=== PATIENT | male | born 1965 | race Caucasian/White ===

== ENCOUNTER 2018-10-31 02:37 | Inpatient (IN) | payer OTHER ==
[~2018-10-31] VITALS: Ht 198.1 cm; Wt 92.8 kg
[~2018-10-31 02:37] MED LIST: ASPI81TA45 PO; CARV40CP PO; DIGO125T PO; FURO-93 PO
--- NOTE | 2018-10-31 02:58 | NUR ---
PT TO CT
--- NOTE | 2018-10-31 03:05 | NUR ---
PT WAS BROUGHT HERE BY [employer]ADEEP FROM WORK FOR SEIZURE LIKE ACTIVITY AT WORK. PT HAS HX OF CHF AND HAS A DEFIBRILATOR IN PLACE. PT HAS BILATERAL PEDAL EDEMA. PT COMPLAINING OF OVER ALL WEAKNESS. PT IS AAOX 3 CONFUSED TO TIME. LAB AT BEDSIDE.
[2018-10-31 03:13] LABS: BASOPHILS # (AUTO) 0.01 x10^3/uL (0-0.1); BASOPHILS % (AUTO) 1 % (0-1); EOSINOPHILS # (AUTO) 0.07 x10^3/uL (0-0.4); EOSINOPHILS % (AUTO) 2 % (1-7); LYMPHOCYTES # (AUTO) 0.53 x10^3/uL (1-3.4); LYMPHOCYTES % (AUTO) 17 % (22-44); MD NO; MEAN CORPUSCULAR HEMOGLOBIN 32.8 pg (27.5-34.5); MEAN CORPUSCULAR HGB CONC 34.4 g/dL (33.2-36.2); MEAN CORPUSCULAR VOLUME 95.4 fL (81-97); MEAN PLATELET VOLUME 9.8 fL (7.4-10.4); MONOCYTES # (AUTO) 0.36 x10^3/uL (0.2-0.8); MONOCYTES % (AUTO) 12 % (2-9); NEUTROPHILS # (AUTO) 2.17 x10^3/uL (1.8-6.8); NEUTROPHILS % (AUTO) 69 % (42-75); PLATELET COUNT 141 x10^3/uL (130-400); RED BLOOD COUNT 4.04 x10^6/uL (4.38-5.82); RED CELL DISTRIBUTION WIDTH 14.8 % (9.4-14.8)
[2018-10-31 03:24] LABS: INTERNATIONAL NORMALIZED RATIO 1.03 (0.93-1.1); PROTHROMBIN TIME 10.8 Seconds (9.6-11.5)
[2018-10-31 03:25] LABS: ALANINE AMINOTRANSFERASE 29 U/L (12-78); ALBUMIN 3.9 g/dL (3.4-5.0); ANION GAP 4 mmol/L (5-15); CALCIUM 8.9 mg/dL (8.5-10.1); CHLORIDE 108 mmol/L (98-107)
[2018-10-31 03:28] LABS: ALKALINE PHOSPHATASE 85 U/L (45-117); BILIRUBIN,TOTAL 0.2 mg/dL (0.2-1.0); CREATININE 1.25 mg/dL (0.7-1.3); TOTAL PROTEIN 6.9 g/dL (6.4-8.2); TROPONIN I < 0.015 ng/mL (0.000-0.045)
[2018-10-31 03:31] LABS: SALICYLATE LEVEL < 1.7 mg/dL (2.8-20.0)
[2018-10-31 03:33] LABS: ACETAMINOPHEN < 2 mcg/mL (10-30)
--- NOTE | 2018-10-31 04:16 | NUR ---
PT TOLERATING PO FLUIDS AND AMBULATED WITH A STEADY GAIT. NOTIFIED
[2018-10-31] MEDS ORDERED: LORazepam 2 MG/ML, 1ML IVPush PRN (05:00)
[2018-10-31] MEDS ORDERED: POLYETHYLENE GLYCOL 17 GM PACKET PO PRN (05:00)
[2018-10-31] MEDS ORDERED: hydrALAzine 20 MG/ML, 1ML IVPush PRN (05:00)
[2018-10-31 05:32] VITALS: BP 118/72
[2018-10-31] MEDS: ENOXAPARIN 40 MG/0.4 ML SQ SCH (06:22)
[2018-10-31] MEDS: FUROSEMIDE 20 MG TABLET PO SCH (08:40)
[2018-10-31] MEDS ORDERED: CARVEDILOL 12.5 MG TABLET PO SCH (09:00)
[2018-10-31] MEDS ORDERED: DIGOXIN 0.125 MG TABLET PO SCH (09:00)
[2018-10-31 09:43] LABS: AMPHETAMINE SCREEN, URINE Negative (Negative); BARBITURATE SCREEN, URINE Negative (Negative); BENZODIAZEPINE SCREEN, URINE Negative (Negative); CANNABINOID SCREEN, URINE Negative (Negative); COCAINE SCREEN, URINE Negative (Negative); METHADONE SCREEN, URINE Negative (Negative); OPIATE SCREEN, URINE Negative (Negative)
[2018-10-31 11:23] VITALS: BP 119/72
[2018-10-31] MEDS ORDERED: FLEC50TA25 PO (12:10)
[2018-10-31] MEDS ORDERED: CARV25TA12 PO (12:10)
[2018-10-31] MEDS ORDERED: HYDR25TA6 PO (12:10)
[2018-10-31] MEDS: LEVETIRACETAM 1,000 MG in SODIUM CHLORIDE 0.9% 100 ML IV SCH (14:06)
[2018-10-31 14:41] VITALS: BP 120/74
[2018-10-31] MEDS ORDERED: ACETAMINOPHEN 325 MG TABLET PO PRN (17:00)
[2018-10-31 18:35] LABS: O2 FLOW ROOM AIR L/min
[2018-10-31 20:04] VITALS: BP 111/69
[2018-10-31] MEDS: CARVEDILOL 12.5 MG TABLET PO SCH (20:08)
[2018-10-31] MEDS: FLECAINIDE 50MG TABLET PO SCH (20:08)
[2018-10-31 20:31] VITALS: BP 100/63
[2018-11-01 00:01] VITALS: BP_SYST 111; BP_SYST 114; BP_DIAS 69
[2018-11-01] MEDS: LEVETIRACETAM 1,000 MG in SODIUM CHLORIDE 0.9% 100 ML IV SCH (02:37)
[2018-11-01] MEDS: ENOXAPARIN 40 MG/0.4 ML SQ SCH (04:48)
[2018-11-01 06:29] LABS: BASOPHILS # (AUTO) 0.02 x10^3/uL (0-0.1); BASOPHILS % (AUTO) 0 % (0-1); EOSINOPHILS # (AUTO) 0.05 x10^3/uL (0-0.4); EOSINOPHILS % (AUTO) 1 % (1-7); LYMPHOCYTES # (AUTO) 0.59 x10^3/uL (1-3.4); LYMPHOCYTES % (AUTO) 15 % (22-44); MD NO; MEAN CORPUSCULAR HEMOGLOBIN 32.8 pg (27.5-34.5); MEAN CORPUSCULAR HGB CONC 34.3 g/dL (33.2-36.2); MEAN CORPUSCULAR VOLUME 95.7 fL (81-97); MEAN PLATELET VOLUME 10.4 fL (7.4-10.4); MONOCYTES # (AUTO) 0.38 x10^3/uL (0.2-0.8); MONOCYTES % (AUTO) 9 % (2-9); NEUTROPHILS # (AUTO) 3.02 x10^3/uL (1.8-6.8); NEUTROPHILS % (AUTO) 75 % (42-75); PLATELET COUNT 127 x10^3/uL (130-400); RED BLOOD COUNT 3.96 x10^6/uL (4.38-5.82); RED CELL DISTRIBUTION WIDTH 14.6 % (9.4-14.8)
[2018-11-01 06:37] LABS: ALBUMIN 3.3 g/dL (3.4-5.0); ANION GAP 4 mmol/L (5-15); CALCIUM 8.5 mg/dL (8.5-10.1); CHLORIDE 111 mmol/L (98-107)
[2018-11-01 06:42] LABS: ALANINE AMINOTRANSFERASE 31 U/L (12-78); ALKALINE PHOSPHATASE 71 U/L (45-117); BILIRUBIN,TOTAL 0.7 mg/dL (0.2-1.0); TOTAL PROTEIN 6.2 g/dL (6.4-8.2)
[2018-11-01 07:45] VITALS: BP 105/67
[2018-11-01] MEDS: CARVEDILOL 12.5 MG TABLET PO SCH ×2 (07:46→21:19)
[2018-11-01] MEDS: FLECAINIDE 50MG TABLET PO SCH ×2 (07:47→21:18)
[2018-11-01] MEDS: FUROSEMIDE 20 MG TABLET PO SCH (07:47)
[2018-11-01] MEDS: LEVETIRACETAM 500 MG TABLET PO SCH ×2 (12:12→21:18)
[2018-11-01 14:02] VITALS: BP 105/62
[2018-11-01 20:08] VITALS: BP 109/65
[2018-11-01 21:17] VITALS: BP 105/70
[2018-11-02 01:22] VITALS: BP 98/63
[2018-11-02] MEDS: ENOXAPARIN 40 MG/0.4 ML SQ SCH (05:01)
[2018-11-02 06:13] LABS: ANION GAP 4 mmol/L (5-15); CALCIUM 8.5 mg/dL (8.5-10.1); CHLORIDE 109 mmol/L (98-107); CREATININE 0.89 mg/dL (0.7-1.3)
[2018-11-02 06:42] VITALS: BP 133/84
[2018-11-02] MEDS: CARVEDILOL 12.5 MG TABLET PO SCH (08:54)
[2018-11-02] MEDS: LEVETIRACETAM 500 MG TABLET PO SCH (08:54)
[2018-11-02] MEDS: FLECAINIDE 50MG TABLET PO SCH (08:54)
[2018-11-02] MEDS ORDERED: HYDROCHLOROTHIAZIDE 25 MG TABLET PO SCH (09:00)
[2018-11-02] MEDS ORDERED: OMNIPAQUE 350 MG/ML, 75ML BOTTLE ONE (10:45)
[2018-11-02] MEDS ORDERED: LEVE10007 PO (11:19)
[2018-11-02 12:26] VITALS: BP 116/69
== END 2018-11-02 15:15 | disposition home health service (06) | DRG 101 ==
LOC: ED 03:32 → EDIP 04:29 → 4EST 05:19 → DCLOUNGE 11-02 15:08
PROVIDERS: ADMIT Family Medicine; ATTEND Family Medicine
PROC: 5A12012 Performance of Cardiac Output, Single, Manual (ICD-10-PCS; principal; 2018-10-31)
DX: R56.9 Unspecified convulsions (principal); Z95.810 Presence of automatic (implantable) cardiac defibrillator; I48.91 Unspecified atrial fibrillation; F10.10 Alcohol abuse, uncomplicated; I11.0 Hypertensive heart disease with heart failure; I50.9 Heart failure, unspecified; R32 Unspecified urinary incontinence; Z79.01 Long term (current) use of anticoagulants; Z86.73 Personal history of transient ischemic attack (TIA), and cerebral infarction without residual deficits; Z80.3 Family history of malignant neoplasm of breast; Z82.49 Family history of ischemic heart disease and other diseases of the circulatory system; Z82.3 Family history of stroke
CPT/HCPCS: 36415; 36600; 70450; 70460; 71045; 80048; 80053; 80162; 80307; 82803; 82962; 83735; 83880; 84484; 85025; 85610; 85730; 92950; 93005; 93970; 95819; G0378; J1650; J1953; Q9967

== ENCOUNTER 2019-11-01 21:11 | Inpatient (IN) | payer OTHER ==
[~2019-11-01] VITALS: Ht 198.1 cm; Wt 102.4 kg
[~2019-11-01 21:11] MED LIST changes: +CARV25TA12 PO; -DIGO125T PO; +DIGO125T85 PO; +FLEC50TA25 PO; +HYDR25TA6 PO; +LEVE10007 PO; +lopressor; +paxil
[2019-11-01 22:36] VITALS: BP 105/63
[2019-11-01] MEDS ORDERED: hydrALAzine 20 MG/ML, 1ML IVPush PRN (23:00)
[2019-11-01] MEDS ORDERED: ONDANSETRON 2MG/ML, 2ML IVPush PRN (23:00)
[2019-11-01 23:24] LABS: BASOPHILS # (AUTO) 0.01 x10^3/uL (0-0.1); BASOPHILS % (AUTO) 0 % (0-1); EOSINOPHILS # (AUTO) 0.04 x10^3/uL (0-0.4); EOSINOPHILS % (AUTO) 1 % (1-7); LYMPHOCYTES # (AUTO) 0.49 x10^3/uL (1-3.4); LYMPHOCYTES % (AUTO) 12 % (22-44); MD NO; MEAN CORPUSCULAR HEMOGLOBIN 32.1 pg (27.5-34.5); MEAN CORPUSCULAR HGB CONC 34.1 g/dL (33.2-36.2); MEAN CORPUSCULAR VOLUME 94.3 fL (81-97); MEAN PLATELET VOLUME 10.2 fL (7.4-10.4); MONOCYTES # (AUTO) 0.49 x10^3/uL (0.2-0.8); MONOCYTES % (AUTO) 12 % (2-9); NEUTROPHILS # (AUTO) 3.18 x10^3/uL (1.8-6.8); NEUTROPHILS % (AUTO) 75 % (42-75); PLATELET COUNT 113 x10^3/uL (130-400); RED BLOOD COUNT 3.87 x10^6/uL (4.38-5.82); RED CELL DISTRIBUTION WIDTH 14.6 % (9.4-14.8)
[2019-11-01 23:35] LABS: INTERNATIONAL NORMALIZED RATIO 1.07 (0.93-1.1); PROTHROMBIN TIME 11.3 Seconds (9.6-11.5)
[2019-11-01 23:39] LABS: ALANINE AMINOTRANSFERASE 27 U/L (12-78); ALBUMIN 3.1 g/dL (3.4-5.0); ANION GAP 10 mmol/L (5-15); CALCIUM 8.8 mg/dL (8.5-10.1); CHLORIDE 102 mmol/L (98-107); CREATININE 0.97 mg/dL (0.7-1.3)
[2019-11-02 00:05] LABS: ALKALINE PHOSPHATASE 81 U/L (45-117); BILIRUBIN,TOTAL 0.6 mg/dL (0.2-1.0); TOTAL PROTEIN 6.5 g/dL (6.4-8.2)
[2019-11-02] MEDS ORDERED: OMNIPAQUE 350 MG/ML, 100ML BOTTLE ONE (01:14)
[2019-11-02] MEDS ORDERED: CALCIUM GLUCONATE 4.6 MEQ in SODIUM CHLORIDE 0.9% 50 ML IV ONE (01:30)
[2019-11-02] MEDS ORDERED: POTASSIUM CHLORIDE 40 MEQ in SODIUM CHLORIDE 0.9% 500 ML IV ONE (01:30)
[2019-11-02 01:48] VITALS: BP 101/61
[2019-11-02] MEDS: CEFTRIAXONE PMX 1GM/50ML 50 ML IV SCH (03:54)
[2019-11-02 05:08] LABS: CHOL/HDL RATIO 3.4; LDL/HDL RATIO 1.9 (0.5-3.0)
[2019-11-02] MEDS: CARVEDILOL 6.25 MG TABLET PO SCH ×2 (05:42→18:29)
[2019-11-02 05:43] VITALS: BP 120/67
[2019-11-02] MEDS ORDERED: SODI30SP NS (08:54)
[2019-11-02] MEDS ORDERED: METO25TA35 PO (08:54)
[2019-11-02] MEDS ORDERED: PARO20TA98 PO (08:54)
[2019-11-02] MEDS ORDERED: ACET-76 PO (08:54)
[2019-11-02 09:28] VITALS: BP 100/64
[2019-11-02] MEDS: LEVETIRACETAM 500 MG TABLET PO SCH ×2 (09:29→22:16)
[2019-11-02] MEDS ORDERED: POTASSIUM CHLORIDE 10% 40 MEQ/30 ML UDC PO ONE (09:30)
[2019-11-02] MEDS: PANTOPRAZOLE 40 MG IV IVPush SCH ×2 (09:57→22:16)
[2019-11-02] MEDS: DOXYCYCLINE 100 MG in DEXTROSE 5% 250 ML IV SCH ×2 (09:57→22:16)
[2019-11-02 12:27] LABS: MICROSCOPIC AUTO
[2019-11-02 14:48] VITALS: BP 97/53
[2019-11-02] MEDS ORDERED: LIDOCAINE 1%, 10ML ONE (14:54)
[2019-11-02] MEDS ORDERED: OMNIPAQUE 180 MG/ML, 20ML VIAL ONE (16:09)
[2019-11-02 18:27] VITALS: BP 107/58
[2019-11-02] MEDS: ACETAMINOPHEN 325 MG TABLET PO PRN (22:16)
[2019-11-03] MEDS: CEFTRIAXONE PMX 1GM/50ML 50 ML IV SCH (03:51)
[2019-11-03 03:55] VITALS: BP 108/65
[2019-11-03 05:08] LABS: ALBUMIN 2.7 g/dL (3.4-5.0); ANION GAP 3 mmol/L (5-15); CALCIUM 8.6 mg/dL (8.5-10.1); CHLORIDE 105 mmol/L (98-107)
[2019-11-03 05:13] LABS: ALANINE AMINOTRANSFERASE 24 U/L (12-78); ALKALINE PHOSPHATASE 70 U/L (45-117); BILIRUBIN,TOTAL 0.4 mg/dL (0.2-1.0); CREATININE 0.98 mg/dL (0.7-1.3); TOTAL PROTEIN 5.8 g/dL (6.4-8.2)
[2019-11-03] MEDS: CARVEDILOL 6.25 MG TABLET PO SCH ×2 (05:30→17:54)
[2019-11-03 05:34] LABS: MEAN CORPUSCULAR HEMOGLOBIN 32.1 pg (27.5-34.5); MEAN CORPUSCULAR HGB CONC 33.3 g/dL (33.2-36.2); MEAN CORPUSCULAR VOLUME 96.3 fL (81-97); MEAN PLATELET VOLUME 10.6 fL (7.4-10.4); PLATELET COUNT 95 x10^3/uL (130-400); RED BLOOD COUNT 3.61 x10^6/uL (4.38-5.82); RED CELL DISTRIBUTION WIDTH 15.1 % (9.4-14.8)
[2019-11-03 06:25] LABS: BASOPHILS # (AUTO) 0.01 x10^3/uL (0-0.1); BASOPHILS % (AUTO) 0 % (0-1); EOSINOPHILS # (AUTO) 0.05 x10^3/uL (0-0.4); EOSINOPHILS % (AUTO) 1 % (1-7); LYMPHOCYTES # (AUTO) 0.48 x10^3/uL (1-3.4); LYMPHOCYTES % (AUTO) 12 % (22-44); MD SCAN; MONOCYTES # (AUTO) 0.39 x10^3/uL (0.2-0.8); MONOCYTES % (AUTO) 9 % (2-9); NEUTROPHILS # (AUTO) 3.18 x10^3/uL (1.8-6.8); NEUTROPHILS % (AUTO) 77 % (42-75)
[2019-11-03 07:38] VITALS: BP 103/62
[2019-11-03] MEDS: ACETAMINOPHEN 325 MG TABLET PO PRN ×2 (09:54→21:05)
[2019-11-03] MEDS: LEVETIRACETAM 500 MG TABLET PO SCH ×2 (09:54→21:05)
[2019-11-03] MEDS: PANTOPRAZOLE 40 MG IV IVPush SCH (09:54)
[2019-11-03] MEDS: DOXYCYCLINE 100 MG in DEXTROSE 5% 250 ML IV SCH ×2 (10:33→22:00)
[2019-11-03] MEDS ORDERED: PROPOFOL 50 ML ONE (12:25)
[2019-11-03 13:18] VITALS: BP 111/66
[2019-11-03 19:54] VITALS: BP 108/62
[2019-11-04 00:13] VITALS: BP 117/68
[2019-11-04] MEDS: ACETAMINOPHEN 325 MG TABLET PO PRN (03:04)
[2019-11-04] MEDS: CEFTRIAXONE PMX 1GM/50ML 50 ML IV SCH (03:04)
[2019-11-04 06:12] VITALS: BP 120/71
[2019-11-04] MEDS: CARVEDILOL 6.25 MG TABLET PO SCH ×2 (06:14→17:44)
[2019-11-04] MEDS: OMEPRAZOLE 20 MG CAPSULE.DR PO SCH (06:14)
[2019-11-04 07:01] VITALS: BP 108/64
[2019-11-04] MEDS: LEVETIRACETAM 500 MG TABLET PO SCH ×2 (08:53→21:42)
[2019-11-04] MEDS: HYDROcodone/APAP 5/325 TABLET PO PRN ×3 (08:54→21:42)
[2019-11-04] MEDS: DOXYCYCLINE 100 MG in DEXTROSE 5% 250 ML IV SCH ×2 (10:04→22:04)
[2019-11-04 12:12] VITALS: BP 108/65
[2019-11-04 21:40] VITALS: BP 95/60
[2019-11-04] MEDS: TIZANIDINE 4MG TABLET PO PRN (21:42)
[2019-11-05] MEDS: HYDROcodone/APAP 5/325 TABLET PO PRN ×4 (01:42→21:52)
[2019-11-05 01:49] VITALS: BP 96/63
[2019-11-05] MEDS: CEFTRIAXONE PMX 1GM/50ML 50 ML IV SCH (03:41)
[2019-11-05] MEDS: CARVEDILOL 6.25 MG TABLET PO SCH ×2 (05:54→18:18)
[2019-11-05] MEDS: OMEPRAZOLE 20 MG CAPSULE.DR PO SCH (05:55)
[2019-11-05] MEDS: TIZANIDINE 4MG TABLET PO PRN ×2 (05:55→21:52)
[2019-11-05 07:00] LABS: BASOPHILS # (AUTO) 0.01 x10^3/uL (0-0.1); BASOPHILS % (AUTO) 0 % (0-1); EOSINOPHILS # (AUTO) 0.11 x10^3/uL (0-0.4); EOSINOPHILS % (AUTO) 3 % (1-7); LYMPHOCYTES # (AUTO) 0.54 x10^3/uL (1-3.4); LYMPHOCYTES % (AUTO) 15 % (22-44); MD NO; MEAN CORPUSCULAR HEMOGLOBIN 32.4 pg (27.5-34.5); MEAN CORPUSCULAR HGB CONC 33.6 g/dL (33.2-36.2); MEAN CORPUSCULAR VOLUME 96.5 fL (81-97); MEAN PLATELET VOLUME 10.3 fL (7.4-10.4); MONOCYTES # (AUTO) 0.36 x10^3/uL (0.2-0.8); MONOCYTES % (AUTO) 10 % (2-9); NEUTROPHILS # (AUTO) 2.61 x10^3/uL (1.8-6.8); NEUTROPHILS % (AUTO) 72 % (42-75); PLATELET COUNT 102 x10^3/uL (130-400); RED BLOOD COUNT 3.78 x10^6/uL (4.38-5.82); RED CELL DISTRIBUTION WIDTH 14.2 % (9.4-14.8)
[2019-11-05 07:08] LABS: ANION GAP 1 mmol/L (5-15); CALCIUM 8.6 mg/dL (8.5-10.1); CHLORIDE 107 mmol/L (98-107)
[2019-11-05 07:09] LABS: CREATININE 0.68 mg/dL (0.7-1.3)
[2019-11-05 07:46] VITALS: BP 92/58
[2019-11-05] MEDS ORDERED: DOCUSATE 100 MG CAPSULE ONE (08:34)
[2019-11-05] MEDS ORDERED: POLYETHYLENE GLYCOL 17 GM PACKET ONE (08:34)
[2019-11-05] MEDS: DOCUSATE 100 MG CAPSULE PO PRN (08:38)
[2019-11-05] MEDS: LEVETIRACETAM 500 MG TABLET PO SCH ×2 (08:38→21:49)
[2019-11-05] MEDS: POLYETHYLENE GLYCOL 17 GM PACKET PO PRN (08:38)
[2019-11-05] MEDS: DOXYCYCLINE 100 MG in DEXTROSE 5% 250 ML IV SCH ×2 (10:13→21:52)
[2019-11-05 12:38] VITALS: BP 100/63
[2019-11-05 18:16] VITALS: BP 103/64
[2019-11-05 19:46] VITALS: BP 104/62
[2019-11-06 02:12] VITALS: BP 97/59
[2019-11-06] MEDS: CEFTRIAXONE PMX 1GM/50ML 50 ML IV SCH (03:13)
[2019-11-06] MEDS: TIZANIDINE 4MG TABLET PO PRN ×2 (06:02→21:14)
[2019-11-06] MEDS: CARVEDILOL 6.25 MG TABLET PO SCH ×2 (06:02→18:03)
[2019-11-06] MEDS: OMEPRAZOLE 20 MG CAPSULE.DR PO SCH (06:02)
[2019-11-06 07:52] VITALS: BP 104/67
[2019-11-06] MEDS: LEVETIRACETAM 500 MG TABLET PO SCH ×2 (09:06→21:14)
[2019-11-06] MEDS: DOXYCYCLINE 100 MG in DEXTROSE 5% 250 ML IV SCH (12:27)
[2019-11-06 13:06] VITALS: BP 119/70
[2019-11-06 18:03] VITALS: BP 115/71
[2019-11-06 20:57] VITALS: BP 113/73
[2019-11-06] MEDS: DOCUSATE 100 MG CAPSULE PO PRN (21:14)
[2019-11-07] MEDS: DOXYCYCLINE 100 MG in DEXTROSE 5% 250 ML IV SCH ×2 (00:09→12:22)
[2019-11-07 02:24] VITALS: BP 100/66
[2019-11-07] MEDS: CEFTRIAXONE PMX 1GM/50ML 50 ML IV SCH (03:10)
[2019-11-07] MEDS: OMEPRAZOLE 20 MG CAPSULE.DR PO SCH (05:26)
[2019-11-07] MEDS: ACETAMINOPHEN 325 MG TABLET PO PRN (05:26)
[2019-11-07] MEDS: CARVEDILOL 6.25 MG TABLET PO SCH ×2 (05:26→17:43)
[2019-11-07] MEDS: TIZANIDINE 4MG TABLET PO PRN (05:27)
[2019-11-07 06:15] LABS: BASOPHILS # (AUTO) 0.02 x10^3/uL (0-0.1); BASOPHILS % (AUTO) 1 % (0-1); EOSINOPHILS % (AUTO) 3 % (1-7); LYMPHOCYTES # (AUTO) 0.42 x10^3/uL (1-3.4); LYMPHOCYTES % (AUTO) 12 % (22-44); MD NO; MEAN CORPUSCULAR HEMOGLOBIN 31.7 pg (27.5-34.5); MEAN CORPUSCULAR HGB CONC 33.3 g/dL (33.2-36.2); MEAN CORPUSCULAR VOLUME 95.3 fL (81-97); MEAN PLATELET VOLUME 10.6 fL (7.4-10.4); MONOCYTES # (AUTO) 0.34 x10^3/uL (0.2-0.8); MONOCYTES % (AUTO) 10 % (2-9); NEUTROPHILS # (AUTO) 2.62 x10^3/uL (1.8-6.8); NEUTROPHILS % (AUTO) 75 % (42-75); PLATELET COUNT 112 x10^3/uL (130-400); RED BLOOD COUNT 3.93 x10^6/uL (4.38-5.82); RED CELL DISTRIBUTION WIDTH 14.6 % (9.4-14.8)
[2019-11-07 06:26] LABS: ANION GAP 3 mmol/L (5-15); CALCIUM 8.4 mg/dL (8.5-10.1); CHLORIDE 107 mmol/L (98-107)
[2019-11-07 06:29] LABS: CREATININE 0.77 mg/dL (0.7-1.3)
[2019-11-07 07:19] VITALS: BP 116/67
[2019-11-07] MEDS: POLYETHYLENE GLYCOL 17 GM PACKET PO PRN (08:53)
[2019-11-07] MEDS: LEVETIRACETAM 500 MG TABLET PO SCH ×2 (08:53→22:09)
[2019-11-07] MEDS: DOCUSATE 100 MG CAPSULE PO PRN (08:53)
[2019-11-07] MEDS ORDERED: LACTULOSE 10 GM/15 ML UDC PO SCH (13:30)
[2019-11-07 13:48] VITALS: BP 126/73
[2019-11-07] MEDS: LACTULOSE 10 GM/15 ML UDC PO SCH ×2 (17:43→22:13)
[2019-11-07 18:45] VITALS: BP 116/69
[2019-11-07] MEDS: HYDROcodone/APAP 5/325 TABLET PO PRN (22:13)
[2019-11-08] MEDS: DOXYCYCLINE 100 MG in DEXTROSE 5% 250 ML IV SCH (00:17)
[2019-11-08] MEDS: LACTULOSE 10 GM/15 ML UDC PO SCH ×3 (01:20→08:34)
[2019-11-08 01:39] VITALS: BP 121/70
[2019-11-08] MEDS: CEFTRIAXONE PMX 1GM/50ML 50 ML IV SCH (04:16)
[2019-11-08] MEDS: HYDROcodone/APAP 5/325 TABLET PO PRN ×4 (04:16→18:47)
[2019-11-08] MEDS: OMEPRAZOLE 20 MG CAPSULE.DR PO SCH (05:42)
[2019-11-08] MEDS: CARVEDILOL 6.25 MG TABLET PO SCH ×2 (05:42→18:44)
[2019-11-08 05:58] LABS: ANION GAP 4 mmol/L (5-15); CALCIUM 8.5 mg/dL (8.5-10.1); CHLORIDE 108 mmol/L (98-107); CREATININE 0.69 mg/dL (0.7-1.3)
[2019-11-08 06:00] LABS: BASOPHILS # (AUTO) 0.02 x10^3/uL (0-0.1); BASOPHILS % (AUTO) 1 % (0-1); EOSINOPHILS # (AUTO) 0.08 x10^3/uL (0-0.4); EOSINOPHILS % (AUTO) 3 % (1-7); LYMPHOCYTES # (AUTO) 0.41 x10^3/uL (1-3.4); LYMPHOCYTES % (AUTO) 14 % (22-44); MD NO; MEAN CORPUSCULAR HEMOGLOBIN 31.9 pg (27.5-34.5); MEAN CORPUSCULAR HGB CONC 33.6 g/dL (33.2-36.2); MEAN CORPUSCULAR VOLUME 95.2 fL (81-97); MONOCYTES % (AUTO) 10 % (2-9); NEUTROPHILS # (AUTO) 2.19 x10^3/uL (1.8-6.8); NEUTROPHILS % (AUTO) 73 % (42-75); PLATELET COUNT 117 x10^3/uL (130-400); RED BLOOD COUNT 3.92 x10^6/uL (4.38-5.82); RED CELL DISTRIBUTION WIDTH 14.8 % (9.4-14.8)
[2019-11-08 07:26] VITALS: BP 120/66
[2019-11-08] MEDS ORDERED: BISACODYL 10 MG SUPP PR PRN (08:00)
[2019-11-08] MEDS: LEVETIRACETAM 500 MG TABLET PO SCH ×2 (08:28→20:07)
[2019-11-08] MEDS: ACETAMINOPHEN 325 MG TABLET PO PRN ×2 (13:04→18:48)
[2019-11-08 14:01] VITALS: BP 118/75
[2019-11-08 14:15] LABS: OCCULT BLOOD NEGATIVE (NEGATIVE)
[2019-11-08 19:03] VITALS: BP 104/65
[2019-11-09 01:28] VITALS: BP 102/62
[2019-11-09] MEDS: CARVEDILOL 6.25 MG TABLET PO SCH ×2 (04:52→18:41)
[2019-11-09] MEDS: OMEPRAZOLE 20 MG CAPSULE.DR PO SCH (04:52)
[2019-11-09 05:56] LABS: BASOPHILS % (AUTO) 0 % (0-1); EOSINOPHILS # (AUTO) 0.05 x10^3/uL (0-0.4); EOSINOPHILS % (AUTO) 1 % (1-7); LYMPHOCYTES # (AUTO) 0.32 x10^3/uL (1-3.4); LYMPHOCYTES % (AUTO) 5 % (22-44); MD NO; MEAN CORPUSCULAR HEMOGLOBIN 31.9 pg (27.5-34.5); MEAN CORPUSCULAR HGB CONC 33.7 g/dL (33.2-36.2); MEAN CORPUSCULAR VOLUME 94.7 fL (81-97); MEAN PLATELET VOLUME 10.4 fL (7.4-10.4); MONOCYTES # (AUTO) 0.46 x10^3/uL (0.2-0.8); MONOCYTES % (AUTO) 7 % (2-9); NEUTROPHILS # (AUTO) 5.96 x10^3/uL (1.8-6.8); NEUTROPHILS % (AUTO) 88 % (42-75); PLATELET COUNT 129 x10^3/uL (130-400); RED BLOOD COUNT 3.96 x10^6/uL (4.38-5.82); RED CELL DISTRIBUTION WIDTH 14.5 % (9.4-14.8)
[2019-11-09 05:59] LABS: ANION GAP 2 mmol/L (5-15); CALCIUM 8.7 mg/dL (8.5-10.1); CHLORIDE 106 mmol/L (98-107)
[2019-11-09 06:01] LABS: CREATININE 0.75 mg/dL (0.7-1.3)
[2019-11-09 07:19] VITALS: BP 105/65
[2019-11-09] MEDS: LEVETIRACETAM 500 MG TABLET PO SCH ×2 (09:14→21:01)
[2019-11-09] MEDS: ACETAMINOPHEN 325 MG TABLET PO PRN (09:15)
[2019-11-09] MEDS: HYDROcodone/APAP 5/325 TABLET PO PRN (09:15)
[2019-11-09] MEDS: SODIUM CHLORIDE 0.9% 1,000 ML IV SCH (09:26)
[2019-11-09 14:05] VITALS: BP 107/65
[2019-11-09] MEDS ORDERED: CHLORHEXIDINE 15 ML UDC MM ONE (14:30)
[2019-11-09] MEDS ORDERED: FENTANYL PF 250 MCG/5ML ONE (14:47)
[2019-11-09] MEDS ORDERED: MIDAZOLAM 1 MG/ML, 2ML ONE (14:47)
[2019-11-09] MEDS ORDERED: ROCURONIUM 10MG/ML,5ML ONE (14:48)
[2019-11-09] MEDS ORDERED: PROPOFOL 10 MG/ML, 20ML ONE (14:48)
[2019-11-09] MEDS ORDERED: SUCCINYLCHOLINE 20 MG/ML, 10ML ONE (14:48)
[2019-11-09] MEDS ORDERED: DEXAMETHASONE 4 MG/ML, 1ML ONE ×3 (14:48)
[2019-11-09] MEDS ORDERED: BUPIVACAINE/PF-EPI 0.5% 1:200K ONE (15:05)
[2019-11-09] MEDS ORDERED: BACITRACIN 50,000 UNIT ONE (15:06)
[2019-11-09] MEDS ORDERED: METHYLENE BLUE 10 MG/ML 10ML ONE (15:06)
[2019-11-09] MEDS ORDERED: ONDANSETRON 2MG/ML, 2ML ONE ×2 (15:24→16:43)
[2019-11-09] MEDS ORDERED: SUGAMMADEX 200 MG/2 ML IVPush ONE (15:24)
[2019-11-09] MEDS ORDERED: VASOPRESSIN 20 UNIT/ML, 1ML ONE (15:24)
[2019-11-09] MEDS ORDERED: CEFAZOLIN 1,000 MG ONE (15:48)
[2019-11-09] MEDS ORDERED: FENTANYL PF 100 MCG/2ML ONE (17:15)
[2019-11-09] MEDS ORDERED: HYDROmorphone 2 MG/ML, 1ML ONE (17:15)
[2019-11-09] MEDS: HYDROmorphone 1 MG/ML, 1ML INJ IVPush PRN ×2 (17:25→17:30)
[2019-11-09] MEDS ORDERED: FENTANYL PF 100 MCG/2ML IV PRN (17:30)
[2019-11-09] MEDS ORDERED: LABETALOL 5MG/ML, 20ML IV PRN (17:30)
[2019-11-09] MEDS ORDERED: PROMETHAZINE 25 MG/ML, 1ML IVPush PRN (17:30)
[2019-11-09] MEDS ORDERED: MEPERIDINE/PF 25MG/0.5ML IVPush PRN (17:30)
[2019-11-09] MEDS ORDERED: DIPHENHYDRAMINE 50 MG/ML, 1ML IVPush PRN (17:30)
[2019-11-09] MEDS ORDERED: hydrALAzine 20 MG/ML, 1ML IV PRN (17:30)
[2019-11-09] MEDS ORDERED: ALBUTEROL SULFATE 2.5 MG/3 ML NPPB PRN (17:30)
[2019-11-09] MEDS ORDERED: ONDANSETRON 2MG/ML, 2ML IVPush PRN (17:30)
[2019-11-09] MEDS ORDERED: PROMETHAZINE 12.5 MG SUPP PR PRN (17:30)
[2019-11-09] MEDS ORDERED: OXYcodone 5 MG/5 ML ORAL.SOL UDC PO PRN (17:30)
[2019-11-09] MEDS ORDERED: EPHEDRINE 50 MG/ML, 1ML IVPush PRN (17:30)
[2019-11-09 18:00] VITALS: BP 103/62
[2019-11-09] MEDS ORDERED: CEFAZOLIN 1,000 MG IV SCH (18:00)
[2019-11-10] MEDS: CEFAZOLIN PMX 1GM/50ML 50 ML IV SCH ×2 (00:02→08:46)
[2019-11-10 00:12] VITALS: BP 115/69
[2019-11-10] MEDS: ACETAMINOPHEN 325 MG TABLET PO PRN ×2 (03:02→23:13)
[2019-11-10] MEDS: OXYcodone IR 5MG TABLET PO PRN ×3 (03:03→23:13)
[2019-11-10] MEDS: SODIUM CHLORIDE 0.9% 1,000 ML IV SCH ×2 (03:05→11:00)
[2019-11-10 03:48] VITALS: BP 111/62
[2019-11-10] MEDS: CARVEDILOL 6.25 MG TABLET PO SCH ×2 (06:06→18:33)
[2019-11-10] MEDS: OMEPRAZOLE 20 MG CAPSULE.DR PO SCH (06:06)
[2019-11-10 06:38] LABS: BASOPHILS % (AUTO) 0 % (0-1); EOSINOPHILS % (AUTO) 0 % (1-7); LYMPHOCYTES # (AUTO) 0.19 x10^3/uL (1-3.4); LYMPHOCYTES % (AUTO) 3 % (22-44); MD NO; MEAN CORPUSCULAR HEMOGLOBIN 31.8 pg (27.5-34.5); MEAN CORPUSCULAR HGB CONC 33.1 g/dL (33.2-36.2); MEAN CORPUSCULAR VOLUME 96.1 fL (81-97); MEAN PLATELET VOLUME 10.1 fL (7.4-10.4); MONOCYTES # (AUTO) 0.25 x10^3/uL (0.2-0.8); MONOCYTES % (AUTO) 4 % (2-9); NEUTROPHILS # (AUTO) 5.12 x10^3/uL (1.8-6.8); NEUTROPHILS % (AUTO) 92 % (42-75); PLATELET COUNT 125 x10^3/uL (130-400); RED CELL DISTRIBUTION WIDTH 14.4 % (9.4-14.8)
[2019-11-10 06:47] LABS: ANION GAP 6 mmol/L (5-15); CALCIUM 8.9 mg/dL (8.5-10.1); CHLORIDE 105 mmol/L (98-107); CREATININE 0.71 mg/dL (0.7-1.3)
[2019-11-10 08:19] VITALS: BP 117/64
[2019-11-10] MEDS: LEVETIRACETAM 500 MG TABLET PO SCH ×2 (08:47→21:32)
[2019-11-10] MEDS: TIZANIDINE 4MG TABLET PO PRN ×2 (08:52→21:32)
[2019-11-10] MEDS: HYDROcodone/APAP 5/325 TABLET PO PRN (08:54)
[2019-11-10 13:33] VITALS: BP 93/54
[2019-11-10 18:30] VITALS: BP 105/61
[2019-11-10 23:09] VITALS: BP 120/62
[2019-11-11 01:17] VITALS: BP 123/75
[2019-11-11 06:05] LABS: BASOPHILS # (AUTO) 0.02 x10^3/uL (0-0.1); BASOPHILS % (AUTO) 0 % (0-1); EOSINOPHILS % (AUTO) 2 % (1-7); LYMPHOCYTES # (AUTO) 0.62 x10^3/uL (1-3.4); LYMPHOCYTES % (AUTO) 12 % (22-44); MD NO; MEAN CORPUSCULAR HEMOGLOBIN 31.9 pg (27.5-34.5); MEAN CORPUSCULAR HGB CONC 33.2 g/dL (33.2-36.2); MEAN PLATELET VOLUME 10.7 fL (7.4-10.4); MONOCYTES # (AUTO) 0.55 x10^3/uL (0.2-0.8); MONOCYTES % (AUTO) 11 % (2-9); NEUTROPHILS # (AUTO) 3.92 x10^3/uL (1.8-6.8); NEUTROPHILS % (AUTO) 75 % (42-75); PLATELET COUNT 148 x10^3/uL (130-400); RED BLOOD COUNT 3.67 x10^6/uL (4.38-5.82); RED CELL DISTRIBUTION WIDTH 14.7 % (9.4-14.8)
[2019-11-11 06:23] LABS: ANION GAP 5 mmol/L (5-15); CALCIUM 8.5 mg/dL (8.5-10.1); CHLORIDE 105 mmol/L (98-107); CREATININE 0.77 mg/dL (0.7-1.3)
[2019-11-11] MEDS: OMEPRAZOLE 20 MG CAPSULE.DR PO SCH (06:36)
[2019-11-11] MEDS: CARVEDILOL 6.25 MG TABLET PO SCH ×2 (06:36→17:30)
[2019-11-11] MEDS: OXYcodone IR 5MG TABLET PO PRN ×2 (06:37→20:16)
[2019-11-11] MEDS: LEVETIRACETAM 500 MG TABLET PO SCH ×2 (08:39→20:15)
[2019-11-11 08:41] VITALS: BP 119/63
[2019-11-11 13:00] VITALS: BP 114/74
[2019-11-11] MEDS: TIZANIDINE 4MG TABLET PO PRN (17:30)
[2019-11-11 19:05] VITALS: BP 101/57
[2019-11-12 01:02] VITALS: BP 114/70
[2019-11-12] MEDS: TIZANIDINE 4MG TABLET PO PRN ×2 (01:43→12:29)
[2019-11-12] MEDS: CARVEDILOL 6.25 MG TABLET PO SCH ×2 (05:53→18:05)
[2019-11-12] MEDS: OMEPRAZOLE 20 MG CAPSULE.DR PO SCH (05:53)
[2019-11-12] MEDS: OXYcodone IR 5MG TABLET PO PRN (05:54)
[2019-11-12 06:33] LABS: ANION GAP 4 mmol/L (5-15); CALCIUM 8.9 mg/dL (8.5-10.1); CHLORIDE 103 mmol/L (98-107); CREATININE 0.63 mg/dL (0.7-1.3)
[2019-11-12 06:44] LABS: MEAN CORPUSCULAR HGB CONC 33.2 g/dL (33.2-36.2); MEAN CORPUSCULAR VOLUME 96.4 fL (81-97); PLATELET COUNT 154 x10^3/uL (130-400); RED BLOOD COUNT 3.85 x10^6/uL (4.38-5.82); RED CELL DISTRIBUTION WIDTH 14.8 % (9.4-14.8)
[2019-11-12 07:31] LABS: BASOPHILS # (AUTO) 0.01 x10^3/uL (0-0.1); BASOPHILS % (AUTO) 0 % (0-1); EOSINOPHILS # (AUTO) 0.08 x10^3/uL (0-0.4); EOSINOPHILS % (AUTO) 2 % (1-7); LYMPHOCYTES # (AUTO) 0.54 x10^3/uL (1-3.4); LYMPHOCYTES % (AUTO) 15 % (22-44); MD SCAN; MONOCYTES # (AUTO) 0.53 x10^3/uL (0.2-0.8); MONOCYTES % (AUTO) 15 % (2-9); NEUTROPHILS % (AUTO) 68 % (42-75)
[2019-11-12] MEDS: LEVETIRACETAM 500 MG TABLET PO SCH ×2 (08:52→20:46)
[2019-11-12 09:15] VITALS: BP 120/77
[2019-11-12 12:55] VITALS: BP 109/66
[2019-11-12 21:02] VITALS: BP_SYST 104; BP_SYST 111; BP_DIAS 68; BP_DIAS 69
[2019-11-13 02:00] VITALS: BP 121/72
[2019-11-13] MEDS: TIZANIDINE 4MG TABLET PO PRN ×2 (04:34→21:48)
[2019-11-13 05:24] LABS: BASOPHILS # (AUTO) 0.02 x10^3/uL (0-0.1); BASOPHILS % (AUTO) 0 % (0-1); EOSINOPHILS # (AUTO) 0.08 x10^3/uL (0-0.4); EOSINOPHILS % (AUTO) 2 % (1-7); LYMPHOCYTES % (AUTO) 16 % (22-44); MD NO; MEAN CORPUSCULAR HEMOGLOBIN 32.5 pg (27.5-34.5); MEAN CORPUSCULAR HGB CONC 33.8 g/dL (33.2-36.2); MEAN CORPUSCULAR VOLUME 96.3 fL (81-97); MEAN PLATELET VOLUME 9.4 fL (7.4-10.4); MONOCYTES # (AUTO) 0.45 x10^3/uL (0.2-0.8); MONOCYTES % (AUTO) 12 % (2-9); NEUTROPHILS # (AUTO) 2.65 x10^3/uL (1.8-6.8); NEUTROPHILS % (AUTO) 70 % (42-75); PLATELET COUNT 170 x10^3/uL (130-400); RED BLOOD COUNT 4.05 x10^6/uL (4.38-5.82); RED CELL DISTRIBUTION WIDTH 14.9 % (9.4-14.8)
[2019-11-13 05:30] LABS: ANION GAP 6 mmol/L (5-15); CHLORIDE 106 mmol/L (98-107); CREATININE 0.68 mg/dL (0.7-1.3)
[2019-11-13] MEDS: OMEPRAZOLE 20 MG CAPSULE.DR PO SCH (05:47)
[2019-11-13] MEDS: CARVEDILOL 6.25 MG TABLET PO SCH ×2 (05:47→18:35)
[2019-11-13 08:00] VITALS: BP 102/65
[2019-11-13] MEDS: LEVETIRACETAM 500 MG TABLET PO SCH ×2 (09:36→21:48)
[2019-11-13 14:00] VITALS: BP 101/64
[2019-11-13 21:25] VITALS: BP 100/64
[2019-11-14 01:20] VITALS: BP 111/77
[2019-11-14 05:28] LABS: BASOPHILS # (AUTO) 0.01 x10^3/uL (0-0.1); BASOPHILS % (AUTO) 0 % (0-1); EOSINOPHILS # (AUTO) 0.13 x10^3/uL (0-0.4); EOSINOPHILS % (AUTO) 3 % (1-7); LYMPHOCYTES # (AUTO) 0.57 x10^3/uL (1-3.4); LYMPHOCYTES % (AUTO) 14 % (22-44); MD NO; MEAN CORPUSCULAR HEMOGLOBIN 31.9 pg (27.5-34.5); MEAN CORPUSCULAR HGB CONC 33.5 g/dL (33.2-36.2); MEAN CORPUSCULAR VOLUME 95.3 fL (81-97); MEAN PLATELET VOLUME 9.7 fL (7.4-10.4); MONOCYTES # (AUTO) 0.45 x10^3/uL (0.2-0.8); MONOCYTES % (AUTO) 11 % (2-9); NEUTROPHILS # (AUTO) 3.01 x10^3/uL (1.8-6.8); NEUTROPHILS % (AUTO) 72 % (42-75); PLATELET COUNT 185 x10^3/uL (130-400); RED BLOOD COUNT 4.02 x10^6/uL (4.38-5.82); RED CELL DISTRIBUTION WIDTH 14.6 % (9.4-14.8)
[2019-11-14 05:37] LABS: ANION GAP 6 mmol/L (5-15); CHLORIDE 105 mmol/L (98-107)
[2019-11-14 05:38] LABS: CREATININE 0.75 mg/dL (0.7-1.3)
[2019-11-14] MEDS: OMEPRAZOLE 20 MG CAPSULE.DR PO SCH (06:01)
[2019-11-14] MEDS: CARVEDILOL 6.25 MG TABLET PO SCH ×2 (06:01→17:23)
[2019-11-14 07:36] VITALS: BP 116/71
[2019-11-14] MEDS: LEVETIRACETAM 500 MG TABLET PO SCH ×2 (09:30→20:54)
[2019-11-14] MEDS: OXYcodone IR 5MG TABLET PO PRN ×3 (11:08→21:34)
[2019-11-14 12:35] VITALS: BP 131/78
[2019-11-14 20:35] VITALS: BP 99/58
[2019-11-15 00:18] VITALS: BP 106/68
[2019-11-15] MEDS: OXYcodone IR 5MG TABLET PO PRN ×4 (02:39→21:12)
[2019-11-15] MEDS: OMEPRAZOLE 20 MG CAPSULE.DR PO SCH (05:29)
[2019-11-15] MEDS: CARVEDILOL 6.25 MG TABLET PO SCH ×2 (05:30→17:08)
[2019-11-15 06:41] VITALS: BP 99/65
[2019-11-15] MEDS: DOCUSATE 100 MG CAPSULE PO PRN (09:27)
[2019-11-15] MEDS: ACETAMINOPHEN 325 MG TABLET PO PRN (09:27)
[2019-11-15] MEDS: TIZANIDINE 4MG TABLET PO PRN (09:27)
[2019-11-15] MEDS: POLYETHYLENE GLYCOL 17 GM PACKET PO PRN (09:27)
[2019-11-15] MEDS: LEVETIRACETAM 500 MG TABLET PO SCH ×2 (09:29→21:11)
[2019-11-15 11:15] VITALS: BP 145/75
[2019-11-15 14:24] VITALS: BP 101/67
[2019-11-15 18:30] VITALS: BP 103/66
[2019-11-16 02:29] VITALS: BP 104/64
[2019-11-16] MEDS: OMEPRAZOLE 20 MG CAPSULE.DR PO SCH (05:53)
[2019-11-16] MEDS: OXYcodone IR 5MG TABLET PO PRN ×3 (05:53→16:46)
[2019-11-16] MEDS: CARVEDILOL 6.25 MG TABLET PO SCH (05:53)
[2019-11-16 07:37] VITALS: BP 95/62
[2019-11-16] MEDS: LEVETIRACETAM 500 MG TABLET PO SCH (08:01)
[2019-11-16 13:45] VITALS: BP 110/57
[2019-11-16] MEDS ORDERED: POLY17PO5 PO (14:57)
[2019-11-16] MEDS ORDERED: OMEP-110 PO (14:57)
[2019-11-16] MEDS ORDERED: TIZA4TAB2 PO (14:57)
[2019-11-16] MEDS ORDERED: OXYC5TAB3 PO (15:01)
[2019-11-16 16:45] VITALS: BP 104/68
== END 2019-11-16 17:11 | DRG 515 ==
LOC: 5SO 21:11 → 4NE 11-04 17:58
PROVIDERS: ADMIT Internal Medicine; ATTEND Family Medicine
PROC: 0DB68ZX Excision of Stomach, Via Natural or Artificial Opening Endoscopic, Diagnostic (ICD-10-PCS; principal; 2019-11-03 12:00)
PROC: 01N10ZZ Release Cervical Nerve, Open Approach (ICD-10-PCS; 2019-11-10)
DX: M48.02 Spinal stenosis, cervical region (principal); K29.71 Gastritis, unspecified, with bleeding; S14.125A Central cord syndrome at C5 level of cervical spinal cord, initial encounter; J96.01 Acute respiratory failure with hypoxia; I50.43 Acute on chronic combined systolic (congestive) and diastolic (congestive) heart failure; I46.9 Cardiac arrest, cause unspecified; N39.0 Urinary tract infection, site not specified; L03.116 Cellulitis of left lower limb; I48.91 Unspecified atrial fibrillation; Z95.810 Presence of automatic (implantable) cardiac defibrillator; R33.9 Retention of urine, unspecified; G40.909 Epilepsy, unspecified, not intractable, without status epilepticus; D64.9 Anemia, unspecified; E87.6 Hypokalemia; E83.51 Hypocalcemia; D69.6 Thrombocytopenia, unspecified; L89.152 Pressure ulcer of sacral region, stage 2; I34.0 Nonrheumatic mitral (valve) insufficiency; I11.0 Hypertensive heart disease with heart failure; L30.9 Dermatitis, unspecified; Z80.3 Family history of malignant neoplasm of breast; Z11.59 Encounter for screening for other viral diseases; Z72.89 Other problems related to lifestyle; Z79.899 Other long term (current) drug therapy
CPT/HCPCS: 36415; 72040; 76000; J3490; 62284; 70470; 71045; 72126; 72129; 72132; 80048; 80053; 80061; 81001; 82272; 82330; 82607; 83605; 83735; 83880; 84100; 84443; 85025; 85610; 85730; 87040; 88305; 93306; 95938; 95941; C1713; G0378; J0610; J0690; J0696; J1100; J1170; J2250; J2405; J2704; J3010; J3480; J7060; Q9965; Q9967; 92523-GN; C9113; J0330; J7030; J7040; Q9968; U0001-CS